=== PATIENT | male | born 1990 | race Caucasian/White ===

== ENCOUNTER 2022-08-27 09:18 | Emergency (ER) | payer BC ==
[2022-08-27 09:37] VITALS: RESP 20; TEMP 97.9
[2022-08-27] MEDS ORDERED: ACETAMINOPHEN TAB 500 MG TAB PO STA (10:08)
[2022-08-27] MEDS ORDERED: DEXAMETHASONE SOD PHOSPHATE 10 MG/ML 1 ML VIAL IM STA (10:08)
--- NOTE | 2022-08-27 10:12 | ED ---
Back Pain HPI - General Chief Complaint: Back Pain/Injury Stated Complaint: Right leg pain & back pain Time Seen by Provider: 08/27/22 09:40 Source: patient, RN notes reviewed, old records reviewed Limitations: no limitations - History of Present Illness Initial Comments: 32-year-old male presents with complaints of low back pain that radiates from his right hip down the back of his right leg. He has been seeing a chiropractor for this low back pain, seen him yesterday who told him that his right hip is out of alignment. He is scheduled to see a orthopedic doctor on the for possible herniated disc and MRI. States he has been taking Aleve with no relief. He is coming in for pain control. No previous history of back injuries or surgeries. Denies any bowel or bladder incontinence. MD Complaint: back pain -: month(s) (1) Similar Symptoms Previously: Yes Severity scale (1-10): 8 Quality: aching Improves With: walking Context: while lifting Associated Symptoms: other (Pain radiating down right leg) Treatments Prior to Arrival: NSAIDS, other (Chiropractor) - Related Data Previous Rx's Medication Instructions Recorded Lidocaine 5% Patch [Lidoderm] 1 patch TOPICAL DAILY PRN 14 Days 08/27/22 #14 patch predniSONE 50 mg PO DAILY #5 tab 08/27/22 Allergies Allergy/AdvReac Type Severity Reaction Status Date / Time ibuprofen [From Motrin] Allergy Anaphylaxis Verified 08/27/22 09:37 Review of Systems ROS Statement: Those systems with pertinent positive or pertinent negative responses have been documented in the HPI. ROS Other: All systems not noted in ROS Statement are negative. Past Medical History Past Medical History: Asthma, Diabetes Mellitus, Hypertension Additional Past Medical History / Comment(s): Back, History of Any Multi-Drug Resistant Organisms: None Reported Additional Past Surgical History / Comment(s): Eye, Liver Biopsy Past Psychological History: No Psychological Hx Reported Smoking Status: Never smoker Past Alcohol Use History: Rare Past Drug Use History: None Reported General Exam Limitations: no limitations General appearance: alert, in no apparent distress Head exam: Present: atraumatic Respiratory exam: Absent: respiratory distress, accessory muscle use Cardiovascular Exam: Present: regular rate Neurological exam: Present: alert, oriented X3, normal gait Psychiatric exam: Present: normal affect, normal mood Skin exam: Present: warm, dry, normal color. Absent: cyanosis, diaphoretic, petechiae, pallor Course Vital Signs 08/27/22 08/27/22 09:34 11:14 Temperature 97.9 F Pulse Rate 80 69 Respiratory 20 Rate Blood Pressure 166/109 161/104 O2 Sat by Pulse 99 97 Oximetry Medical Decision Making - Medical Decision Making X-ray lumbar spine shows satisfactory alignment without evidence of fracture or dislocation. Vertebral body height and is within normal limits. X-ray of the pelvis and right hip shows no acute fracture or dislocation. Soft tissue unremarkable. No bowel or bladder incontinence. Denies any trauma. No red flag symptoms. His blood pressure is elevated however he is in discomfort and has a history of hypertension. He was given a course of steroids and directed to also take tylenol until finished with steroids. Aleeve can resume after steroid completion. Lidoderm patches also prescribed. He states has an appointment with his primary care doctor on Tuesday. He does have an appointment on September 10 with orthopedics. He is agreeable to this plan of care. Case discussed with Dr. Cain Disposition Clinical Impression: Low back pain Disposition: HOME SELF-CARE Condition: Good Instructions (If sedation given, give patient instructions): Acute Low Back Pain (ED) Additional Instructions: Keep your appointment is scheduled with orthopedics on September 10. Take the prednisone as prescribed for the next 5 days and do not take Aleve while taking prednisone. Use the Lidoderm patches and Tylenol in addition for pain relief. Prescriptions: Lidocaine 5% Patch [Lidoderm] 1 patch TOPICAL DAILY PRN 14 Days #14 patch PRN Reason: Pain predniSONE 50 mg PO DAILY #5 tab Is patient prescribed a controlled substance at d/c from ED?: No Referrals: Wisam Galarza DO [Primary Care Provider] - 1-2 days Time of Disposition: 11:15
--- NOTE | 2022-08-27 10:41 | XR ---
EXAMINATION TYPE: XR lumbar spine 2 or 3V DATE OF EXAM: 08/27/2022 CLINICAL HISTORY: Pain from lifting injury TECHNIQUE: Frontal and lateral images of the lumbar spine are obtained. COMPARISON: None. FINDINGS: There are 5 lumbar type vertebral bodies identified. The lumbar spine shows satisfactory alignment without evidence of acute fracture or dislocation. Vertebral body heights and disk space he ights are within normal limits. On lateral view there is a 2.2 cm round calcific density possible gal lstone but not clearly seen on frontal view. IMPRESSION: No acute fracture or dislocation is seen in the lumbar spine.
--- NOTE | 2022-08-27 10:42 | XR ---
EXAMINATION TYPE: XR Hip RT and AP Pelvis DATE OF EXAM: 08/27/2022 COMPARISON: NONE HISTORY: Pelvic and right hip pain after work injury. TECHNIQUE: A single AP view of the pelvis is obtained. Two views of the right hip are obtained. FINDINGS: There is no acute fracture/dislocation evident in the pelvis. The hip and sacroiliac join ts appear symmetric and unremarkable. Pubic symphysis is intact. The overlying soft tissue appears u nremarkable. Two views of right hip show no acute fracture or dislocation. No focal lytic or sclerotic lesion see n in the proximal right femur. The overlying soft tissue is unremarkable. IMPRESSION: There is no acute fracture or dislocation in the pelvis or right hip.
[2022-08-27] MEDS ORDERED: LIDOCAINE 5% PATCH TOPICAL SCH (11:00)
[2022-08-27 11:15] VITALS: BP 161/104; PULSE 69
== END 2022-08-27 11:31 | disposition home or self-care (01) ==
LOC: EC 09:18
DX: M54.50 Low back pain, unspecified (principal); J45.909 Unspecified asthma, uncomplicated; I10 Essential (primary) hypertension; E11.9 Type 2 diabetes mellitus without complications; Z88.6 Allergy status to analgesic agent
CPT/HCPCS: 72100; 73502; 96372; 99283; J1100

== ENCOUNTER → 2022-08-31 | Outpatient (CLI) | payer BC ==
--- NOTE | 2022-08-31 14:02 | MR ---
EXAMINATION TYPE: MR lumbar spine wo con DATE OF EXAM: 08/31/2022 COMPARISON: Lumbar spine x-ray August 27, 2022 HISTORY: LUMBAR PAIN INTO RT LEG for 1.5 months after lifting injury. Lumbar goal with sciatica. TECHNIQUE: Multiplanar, multisequence imaging of the lumbar spine is performed without IV contrast. FINDINGS: Sagittal images of the lumbar spine show vertebral body heights and alignment to appear sat isfactory. There is disc desiccation with mild disc space narrowing at L3-L4 and L5-S1 levels. The c onus medullaris is normal in position and signal ending at superior L1 level. The bone marrow signal intensity is within normal limits. Axial images show T12-L1 through the L2-L3 levels appear within normal limits. Axial images at the L3-L4 level shows mild to minimal broad-based disc bulge minimally effacing the a nterior thecal sac. Patent bilateral neural foramina. Axial images at L4-L5 level appear within normal limits. Axial images at the L5-S1 level show focal large right paracentral disc protrusion measuring 13 mm tr ansversely by 8 mm AP diameter axial images 2 and 3. This effaces the anterolateral thecal sac along with the central right S1 and probable central right S2 nerves. Left-sided neural foramen is patent. Right-sided neural foramina shows mild inferior narrowing as there is foraminal component to disc pro trusion axial image 4 noted effacing the inferior aspect of the right L5 nerve axial image 5 and sagi ttal image 14. Paraspinal muscle bulk is maintained. IMPRESSION: Prominent disc herniation L5-S1 level effaces central right S1 and likely central right S 2 nerves. There is a foraminal component effacing inferior margin of the right L5 nerve. Findings cor relate with patient's history of right-sided radiculopathy type symptoms
== END | disposition home or self-care (01) ==
LOC: RADMRIMAIN 12:15
PROVIDERS: ATTEND Family Medicine
DX: M51.27 Other intervertebral disc displacement, lumbosacral region (principal)
CPT/HCPCS: 72148